=== PATIENT | male | born 1980 | race African-American/Black ===

== ENCOUNTER 2020-04-04 17:00 | Outpatient (CLI) | payer OTHER, SELFPAY ==
--- NOTE | ~2020-04-04 | CT_ITS ---
EXAMINATION: CT abdomen pelvis w con DATE: 04/04/2020 17:43 INDICATION: Abdominal pain. TECHNIQUE: Computed tomography (CT) of the abdomen and pelvis was performed with 100 mL Omnipaque 350 intravenous contrast. Automated exposure control and iterative reconstruction technique were employe d. The dose-length product was 201.75 mGy-cm. COMPARISON: None. FINDINGS: The visualized portions of the lung bases demonstrate minimal atelectasis on the right. No pleural effusion. The heart size is normal. No pericardial effusion. There is moderate intrahepatic b iliary duct dilatation. The pancreas is enlarged with numerous parenchymal calcifications and dilatat ion of the pancreatic duct to 15 mm, consistent with chronic pancreatitis. There are multiple cystic lesions in the pancreas measuring up to 3.0 cm, consistent with pseudocysts. There is stenosis of the common bile duct within the pancreas. The spleen, adrenal glands, and left kidney are normal. There is a 1.6 cm cyst in right kidney. There are no dilated loops of bowel. There is a jejunal intussuscep tion spanning 4.0 cm. There is a jejunal intussusception screening 11.2 cm. There are no pathological ly enlarged lymph nodes. There is no free intraperitoneal fluid. There is mild lumbar spondylosis. IMPRESSION: 1. Chronic pancreatitis. 2. Moderate intrahepatic biliary duct dilatation, likely secondary to common bile duct stenosis from chronic pancreatitis. 3. Two jejunal intussusceptions. The shorter intussusception is likely transient. The longer intussus ception is longer than typically seen with transient intussusception, but still may be transient. No bowel dilatation to suggest obstruction. Reviewed, dictated and finalized at location A. IMPRESSION: 1. Chronic pancreatitis. 2. Moderate intrahepatic biliary duct dilatation, likely secondary to common bi le duct stenosis from chronic pancreatitis. 3. Two jejunal intussusceptions. The shorter intussusception is likely transien t. The longer intussusception is longer than typically seen with transient intu ssusception, but still may be transient. No bowel dilatation to suggest obstruc tion.
== END 2020-04-04 17:01 | disposition home or self-care (01) ==
PROVIDERS: PCP Physician Assistant; Visit Provider Physician Assistant
DX: R10.9 Unspecified abdominal pain (principal); K86.1 Other chronic pancreatitis; K56.1 Intussusception
CPT/HCPCS: 74177; Q9967